=== PATIENT | female | born 1950 | race Caucasian/White ===

== ENCOUNTER → 2019-04-23 11:19 | Day surgery (SDC) | payer MEDICARE ==
[~2019-04-23 11:19] MED LIST: Buffered Lidocaine 1% SYRIN* 1 ML/SYRINGE INTRADERM ONE; Lactated Ringers 1000 ML Bag* 1,000 ML IV SCH; Midazolam* 1 MG/ML 2 ML VIAL (2 MG) ONE; Midazolam* 1 MG/ML 5 ML VIAL (5 MG) ONE; Propofol* 10 MG/ML 20 ML BTL ONE; fentaNYL* 50 MCG/ML 2 ML VIAL (100 MCG VIAL) ONE
[2019-04-23 17:07] VITALS: BP 131/92
[2019-04-23 17:09] LABS: Magnesium 2.1 mg/dL (1.9-2.7); Potassium 4.2 mmol/L (3.5-5.0)
--- NOTE | 2019-04-23 23:51 | PRO ---
CC: Dr. Pak * DATE OF PROCEDURE: 04/23/19 - [facility] PROCEDURE: Colonoscopy incomplete due to a challenging anatomy. REFERRING PROVIDER: Dr. Pak INDICATION: The patient is due for colon cancer screening. She estimates that her last colonoscopy was over 5 years ago in [facility]. Her father had colon cancer at 48. She denies any GI symptoms. MEDICATIONS: Given by Anesthesia. DESCRIPTION OF PROCEDURE: Full disclosure of risks was reviewed with the patient as detailed on the consent form. The patient was placed in the left lateral decubitus position and monitored with continuous pulse oximetry, capnography, interval blood pressure monitoring, and direct observation. After anorectal examination was performed, the adult colonoscope was inserted into the rectum and slowly advanced forward into the sigmoid. Unfortunately, procedure was quite challenging due to the anatomy and I was unable to advance the scope further. The colonoscope was then with-drawn and a pediatric colonoscope was inserted into the rectum and slowly advanced forward. This colonoscope was able to advance further into the sigmoid colon to perhaps the descending colon. Unfortunately, I was again unable to advance further. There was a significant sense of restriction as well as tortuously. I suspect that patient's multiple pelvic and abdominal surgeries have contributed to the formation of adhesions. Ultimately, decision was made to abort further attempts and the scope was slowly withdrawn. There was diverticulosis appreciated in the sigmoid colon. No polyps or masses were seen. Retroflexion in the rectum revealed small internal hemorrhoids. Scope was then withdrawn from the patient. The patient tolerated the procedure well and was recovered in the GI recovery area. IMPRESSION: 1. Incomplete colonoscopy due to very challenging anatomy. The patient has had total abdominal hysterectomy, tubal ligation, appendectomy, and lysis of adhesions. 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 2. Diverticulosis. 3. Internal hemorrhoids. FOLLOWUP: Would recommend referral to [facility] to undergo repeat colonoscopy with Dr. Anshul Roblero. Consider alternate means of evaluating for colon cancer such as virtual colonoscopy. However, I would prefer to have another attempt at optical colonoscopy given her family history of father with colon cancer at a young age. The patient is in agreement with this plan. Thank you very much for this referral. [id number]/[facility] #: [id number] OCTAVIO
== END | disposition home or self-care (01) ==
LOC: OR 11:19
PROVIDERS: ATTEND Internal Medicine Gastroenterology
DX: Z12.11 Encounter for screening for malignant neoplasm of colon (principal); K57.30 Diverticulosis of large intestine without perforation or abscess without bleeding; K64.8 Other hemorrhoids; Z80.0 Family history of malignant neoplasm of digestive organs
CPT/HCPCS: 36415; 83735; 84132; J2250; J2704; J3010